=== PATIENT | female | born 1995 | race African-American/Black ===

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

== ENCOUNTER 2018-02-01 17:28 | Emergency (ER) | payer MEDICAID, OTHER ==
[~2018-02-01] VITALS: Ht 162.6 cm; Wt 54.0 kg
[2018-02-01 17:51] VITALS: BP 112/68
[2018-02-01 19:13] LABS: BASOPHILS % 0.5 % (0.0-2.0); EOSINOPHILS % 4.1 % (0.0-5.0); HEMATOCRIT. 32.6 % (36.0-48.0); HEMOGLOBIN. 11.6 g/dL (12.0-16.0); MEAN CORPUSCULAR HEMOGLOBIN 32.5 pg (28.0-32.0); MEAN CORPUSCULAR VOLUME 91.2 fL (81.0-99.0); MEAN PLATELET VOLUME 8.4 fl (7.4-10.4); MONOCYTES % 4.8 % (2.0-8.0); NEUTROPHILS % 46.6 % (40.0-76.0); PLATELET 357 x1000/uL (130-400); RED BLOOD CELL COUNT 3.57 mill/uL (4.2-5.4); RED CELL DISTRIBUTION WIDTH 12.3 % (11.6-14.6)
[2018-02-01 19:15] LABS: CHLORIDE 108 mEq/L (98-107)
[2018-02-01 19:26] LABS: B-HCG QUANTITATIVE 357 mIU/mL (<3)
[2018-02-01 20:40] LABS: CLARITY URINE CLOUDY (CLEAR); COLOR URINE YELLOW (YELLOW); KETONES URINE TRACE (NEGATIVE); LEUKOCYTE ESTERASE URINE TRACE (NEGATIVE); NITRITE URINE NEGATIVE (NEGATIVE); OCCULT BLOOD URINE 3+ (NEGATIVE); PROTEIN URINE 1+ (NEGATIVE); SPECIFIC GRAVITY URINE 1.031 (1.005-1.030)
== END 2018-02-01 21:30 | disposition left against medical advice (07) ==
LOC: ER 17:28
DX: O20.9 Hemorrhage in early pregnancy, unspecified (principal); O26.891 Other specified pregnancy related conditions, first trimester; R10.2 Pelvic and perineal pain; Z3A.08 8 weeks gestation of pregnancy
CPT/HCPCS: 36415; 80053; 81003; 81025; 84702; 85025; 86850; 86900; 99284

== ENCOUNTER 2018-10-10 17:53 | Emergency (ER) | payer MEDICAID, OTHER ==
[~2018-10-10] VITALS: Ht 162.6 cm; Wt 57.0 kg
[2018-10-10] MEDS ORDERED: KETOROLAC 30MG/ML VIAL IV ONE ×2 (19:00→19:15)
[2018-10-10] MEDS ORDERED: SODIUM CHLORIDE 0.9% 1,000 ML IV ONE (19:03)
[2018-10-10 19:15] LABS: CLARITY URINE CLOUDY (CLEAR); COLOR URINE YELLOW (YELLOW); KETONES URINE NEGATIVE (NEGATIVE); LEUKOCYTE ESTERASE URINE 3+ (NEGATIVE); NITRITE URINE NEGATIVE (NEGATIVE); OCCULT BLOOD URINE 2+ (NEGATIVE); PH URINE 7.5 (4.5-8.0); PROTEIN URINE 1+ (NEGATIVE)
[2018-10-10 19:34] LABS: BASOPHILS % 0.5 % (0.0-2.0); EOSINOPHILS % 2.2 % (0.0-5.0); HEMATOCRIT. 35.9 % (36.0-48.0); HEMOGLOBIN. 12.1 g/dL (12.0-16.0); LYMPHOCYTES % 33.8 % (20.0-50.0); MEAN CORPUSCULAR HEMOGLOBIN 31.9 pg (28.0-32.0); MEAN CORPUSCULAR VOLUME 94.7 fL (81.0-99.0); MEAN PLATELET VOLUME 9.1 fl (7.4-10.4); MONOCYTES % 6.4 % (2.0-8.0); NEUTROPHILS % 57.1 % (40.0-76.0); PLATELET 322 x1000/uL (130-400); RED BLOOD CELL COUNT 3.79 mill/uL (4.2-5.4)
[2018-10-10 19:40] LABS: CHLORIDE 110 mEq/L (98-107)
[2018-10-10 19:51] LABS: B-HCG QUANTITATIVE 52 mIU/mL (<3)
[2018-10-10 21:58] VITALS: BP 110/76
== END 2018-10-10 22:03 | disposition home or self-care (01) ==
LOC: ER 17:53
DX: N39.0 Urinary tract infection, site not specified (principal); N93.9 Abnormal uterine and vaginal bleeding, unspecified; Z98.890 Other specified postprocedural states
CPT/HCPCS: 36415; 76801; 76817; 80053; 81003; 81025; 84702; 85025; 86850; 86900; 86901; 87086; 96374; 99284; J1885; J7030

== ENCOUNTER 2018-10-27 16:59 | Emergency (ER) | payer MEDICAID ==
[~2018-10-27] VITALS: Ht 162.6 cm; Wt 50.0 kg
[2018-10-27 18:37] LABS: CLARITY URINE CLOUDY (CLEAR); COLOR URINE YELLOW (YELLOW); KETONES URINE TRACE (NEGATIVE); LEUKOCYTE ESTERASE URINE 2+ (NEGATIVE); NITRITE URINE NEGATIVE (NEGATIVE); OCCULT BLOOD URINE 2+ (NEGATIVE); PROTEIN URINE TRACE (NEGATIVE); SPECIFIC GRAVITY URINE 1.029 (1.005-1.030); UROBILINOGEN URINE 0.2 E.U./dL (0.2-1.0)
[2018-10-27] MEDS ORDERED: CEFTRIAXONE SODIUM 1 G/VIAL IM ONE (21:45)
[2018-10-28 00:05] VITALS: BP 116/70
== END 2018-10-28 00:03 | disposition home or self-care (01) ==
LOC: ER 16:59
DX: N39.0 Urinary tract infection, site not specified (principal); R11.0 Nausea; I51.9 Heart disease, unspecified; Z98.890 Other specified postprocedural states
CPT/HCPCS: 81003; 81025; 87086; 96372; 99283; J0696

== ENCOUNTER 2018-11-07 20:18 | Emergency (ER) | payer MEDICAID | END 2018-11-07 21:51 | disposition left against medical advice (07) | LOC: ER 20:18 | DX: M54.5 Low back pain (principal); R11.0 Nausea; Z53.21 Procedure and treatment not carried out due to patient leaving prior to being seen by health care provider ==

== ENCOUNTER 2018-11-10 14:04 | Emergency (ER) | payer MEDICAID ==
[~2018-11-10] VITALS: Ht 162.6 cm; Wt 52.0 kg
[2018-11-10 15:14] LABS: CLARITY URINE CLOUDY (CLEAR); COLOR URINE YELLOW (YELLOW); KETONES URINE NEGATIVE (NEGATIVE); LEUKOCYTE ESTERASE URINE 3+ (NEGATIVE); NITRITE URINE NEGATIVE (NEGATIVE); OCCULT BLOOD URINE NEGATIVE (NEGATIVE); PROTEIN URINE NEGATIVE (NEGATIVE); SPECIFIC GRAVITY URINE 1.026 (1.005-1.030)
[2018-11-10] MEDS ORDERED: METOCLOPRAMIDE HCL 10MG/2ML VIAL IV STA (15:58)
[2018-11-10] MEDS ORDERED: MAGNESIUM/ALUMINUM HYDROXIDE/SIMETHICONE 30ML UDC PO STA (15:58)
[2018-11-10] MEDS ORDERED: VISCOUS LIDOCAINE 2% 15 ML UDC PO STA (15:58)
[2018-11-10] MEDS ORDERED: SODIUM CHLORIDE 0.9% 1,000 ML IV ONE (15:58)
[2018-11-10] MEDS ORDERED: FAMOTIDINE 20MG/2ML VIAL IV STA (15:58)
[2018-11-10] MEDS ORDERED: DIPHENHYDRAMINE 50MG/ML VIAL IV ONE (16:00)
[2018-11-10 16:51] LABS: BASOPHILS % 0.5 % (0.0-2.0); EOSINOPHILS % 2.8 % (0.0-5.0); HEMOGLOBIN. 12.9 g/dL (12.0-16.0); LYMPHOCYTES % 39.7 % (20.0-50.0); MEAN CORPUSCULAR HEMOGLOBIN 32.6 pg (28.0-32.0); MEAN CORPUSCULAR VOLUME 93.6 fL (81.0-99.0); MEAN PLATELET VOLUME 9.5 fl (7.4-10.4); MONOCYTES % 5.9 % (2.0-8.0); NEUTROPHILS % 51.1 % (40.0-76.0); PLATELET 270 x1000/uL (130-400); RED BLOOD CELL COUNT 3.95 mill/uL (4.2-5.4); RED CELL DISTRIBUTION WIDTH 12.6 % (11.6-14.6)
[2018-11-10 16:52] LABS: CHLORIDE 110 mEq/L (98-107)
[2018-11-10 19:01] VITALS: BP 101/9
== END 2018-11-10 19:04 | disposition home or self-care (01) ==
LOC: ER 14:04
DX: N39.0 Urinary tract infection, site not specified (principal)
CPT/HCPCS: 36415; 80053; 81003; 81025; 83690; 85025; 87086; 96361; 96374; 96375; 99283; J1200; J2765; J3490; J7030; Z7610

== ENCOUNTER 2018-12-17 14:26 | Emergency (ER) | payer MEDICAID ==
[~2018-12-17] VITALS: Ht 162.6 cm; Wt 52.0 kg
[2018-12-17] MEDS ORDERED: SODIUM CHLORIDE 0.9% 1,000 ML IV ONE (17:01)
[2018-12-17] MEDS ORDERED: ONDANSETRON HCL 4MG/2ML INJ IV STA (17:01)
[2018-12-17 17:10] LABS: KETONES URINE NEGATIVE (NEGATIVE); LEUKOCYTE ESTERASE URINE 3+ (NEGATIVE); NITRITE URINE NEGATIVE (NEGATIVE); OCCULT BLOOD URINE NEGATIVE (NEGATIVE); PROTEIN URINE NEGATIVE (NEGATIVE); SPECIFIC GRAVITY URINE 1.019 (1.005-1.030); UROBILINOGEN URINE 0.2 E.U./dL (0.2-1.0)
[2018-12-17 17:11] LABS: CLARITY URINE SL HAZY (CLEAR); COLOR URINE PALE YELLOW (YELLOW)
[2018-12-17 17:40] LABS: BASOPHILS % 0.5 % (0.0-2.0); EOSINOPHILS % 2.6 % (0.0-5.0); HEMATOCRIT. 37.6 % (36.0-48.0); MEAN CORPUSCULAR HEMOGLOBIN 32.2 pg (28.0-32.0); MEAN CORPUSCULAR VOLUME 93.2 fL (81.0-99.0); MEAN PLATELET VOLUME 9.5 fl (7.4-10.4); MONOCYTES % 4.8 % (2.0-8.0); NEUTROPHILS % 45.1 % (40.0-76.0); PLATELET 263 x1000/uL (130-400); RED BLOOD CELL COUNT 4.04 mill/uL (4.2-5.4); RED CELL DISTRIBUTION WIDTH 12.7 % (11.6-14.6)
[2018-12-17 17:45] LABS: CHLORIDE 110 mEq/L (98-107)
[2018-12-17 17:51] LABS: INR 1.1; PROTHROMBIN TIME 11.1 sec (9.6-11.0)
[2018-12-17] MEDS ORDERED: KETOROLAC 30MG/ML VIAL IV NR (18:00)
[2018-12-17 18:38] VITALS: BP 113/70
== END 2018-12-17 18:45 | disposition home or self-care (01) ==
LOC: ER 14:46
DX: R10.2 Pelvic and perineal pain (principal); N12 Tubulo-interstitial nephritis, not specified as acute or chronic; Z98.890 Other specified postprocedural states
CPT/HCPCS: 36415; 80053; 81003; 81025; 83690; 85025; 85610; 96374; 96375; 99283; J1885; J2405; J7030

== ENCOUNTER 2019-04-29 13:59 | Emergency (ER) | payer MEDICAID, OTHER ==
[~2019-04-29] VITALS: Ht 162.6 cm; Wt 52.0 kg
[2019-04-29 14:10] VITALS: BP 93/61
== END 2019-04-29 16:26 | disposition left against medical advice (07) ==
LOC: ER 13:59
DX: Z53.21 Procedure and treatment not carried out due to patient leaving prior to being seen by health care provider (principal)

== ENCOUNTER 2020-02-01 14:35 | Emergency (ER) | payer OTHER, MEDICAID ==
[~2020-02-01] VITALS: Ht 162.6 cm; Wt 52.0 kg
[2020-02-01] MEDS ORDERED: SODIUM CHLORIDE 0.9% 1,000 ML IV ONE (15:03)
[2020-02-01] MEDS ORDERED: FAMOTIDINE 20MG/2ML VIAL IV STA (15:03)
[2020-02-01] MEDS ORDERED: ONDANSETRON HCL 4MG/2ML INJ IV STA (15:03)
[2020-02-01 15:48] LABS: HEMATOCRIT. 34.1 % (36.0-48.0); HEMOGLOBIN. 11.8 g/dL (12.0-16.0); MEAN CORPUSCULAR HEMOGLOBIN 31.4 pg (28.0-32.0); MEAN CORPUSCULAR VOLUME 90.6 fL (81.0-99.0); MEAN PLATELET VOLUME 8.9 fl (7.4-10.4); PLATELET 269 x1000/uL (130-400); RED BLOOD CELL COUNT 3.76 mill/uL (4.2-5.4); RED CELL DISTRIBUTION WIDTH 12.6 % (11.6-14.6)
[2020-02-01 15:53] LABS: CHLORIDE 109 mEq/L (98-107)
[2020-02-01 15:54] LABS: CLARITY URINE CLOUDY (CLEAR); COLOR URINE YELLOW (YELLOW); KETONES URINE NEGATIVE (NEGATIVE); LEUKOCYTE ESTERASE URINE 1+ (NEGATIVE); NITRITE URINE NEGATIVE (NEGATIVE); OCCULT BLOOD URINE NEGATIVE (NEGATIVE); PROTEIN URINE TRACE (NEGATIVE); SPECIFIC GRAVITY URINE 1.031 (1.005-1.030)
[2020-02-01 15:56] LABS: INR 1.1; PROTHROMBIN TIME 11.1 sec (9.6-11.0)
[2020-02-01 15:57] LABS: ETHANOL BLOOD < 10 mg/dL
[2020-02-01 16:07] LABS: *AMPHETAMINES SCREEN URINE NEGATIVE (NEGATIVE); *BARBITURATES SCREEN URINE NEGATIVE (NEGATIVE); *BENZODIAZEPINES SCREEN URINE NEGATIVE (NEGATIVE); *COCAINE SCREEN URINE NEGATIVE (NEGATIVE)
[2020-02-01 16:08] LABS: CANNABINOID URINE SCREEN NEGATIVE (NEGATIVE); METHADONE URINE SCREEN NEGATIVE (NEGATIVE); OPIATES URINE SCREEN NEGATIVE (NEGATIVE); PHENCYCLIDINE URINE SCREEN NEGATIVE (NEGATIVE)
[2020-02-01 16:17] LABS: HCG SCREEN NEGATIVE
[2020-02-01 17:16] LABS: PLATELET ESTIMATE NORMAL
[2020-02-01 17:50] VITALS: BP 95/65
== END 2020-02-01 17:55 | disposition home or self-care (01) ==
LOC: ER 14:35
DX: R42 Dizziness and giddiness (principal); R10.9 Unspecified abdominal pain; N39.0 Urinary tract infection, site not specified; R10.2 Pelvic and perineal pain; K21.9 Gastro-esophageal reflux disease without esophagitis
CPT/HCPCS: 36415; 74022; 76705; 80053; 80305; 80320; 81003; 81025; 83690; 84484; 84703; 85025; 85610; 93005; 99285; J7030; G0480

== ENCOUNTER 2022-01-17 20:25 | Emergency (ER) | payer MEDICAID, OTHER ==
[~2022-01-17] VITALS: Ht 162.6 cm; Wt 65.3 kg
[2022-01-17 22:23] VITALS: BP 147/86
== END 2022-01-18 00:16 | disposition left against medical advice (07) ==
LOC: ER 20:25
DX: Z53.21 Procedure and treatment not carried out due to patient leaving prior to being seen by health care provider (principal)
CPT/HCPCS: 81025; 99282

== ENCOUNTER 2023-10-06 09:42 | Emergency (ER) | payer MEDICAID, OTHER ==
[~2023-10-06] VITALS: Ht 162.6 cm; Wt 52.0 kg
[2023-10-06 09:52] VITALS: O2SAT 100
[2023-10-06] MEDS ORDERED: LIDO700A15 TP (11:03)
[2023-10-06] MEDS ORDERED: IBUP-2029 MT (11:03)
[2023-10-06 11:55] VITALS: BP 125/74; PULSE 67; RESP 18; TEMP 98
== END 2023-10-06 11:54 | disposition home or self-care (01) ==
LOC: ER 10:08
DX: M25.811 Other specified joint disorders, right shoulder (principal); Z98.890 Other specified postprocedural states
CPT/HCPCS: 73030; 81025; 99283; A4565

== ENCOUNTER 2023-11-18 17:48 | Emergency (ER) | payer MEDICAID ==
[~2023-11-18] VITALS: Ht 162.6 cm; Wt 55.0 kg
[~2023-11-18 17:48] MED LIST: IBUP-2029 MT; LIDO700A15 TP
[2023-11-18 17:56] VITALS: BP 106/72; PULSE 85; RESP 18; TEMP 97.8; O2SAT 98
== END 2023-11-18 22:59 | disposition left against medical advice (07) ==
LOC: ER 17:51
DX: R07.89 Other chest pain (principal); Z53.21 Procedure and treatment not carried out due to patient leaving prior to being seen by health care provider

== ENCOUNTER 2023-12-26 16:33 | Emergency (ER) | payer MEDICAID ==
[~2023-12-26] VITALS: Ht 167.6 cm; Wt 55.0 kg
[2023-12-26 16:38] VITALS: BP 98/63; PULSE 81; RESP 18; TEMP 98.5; O2SAT 98
[2023-12-26] MEDS ORDERED: ACET325T52 MT (17:20)
== END 2023-12-26 18:58 | disposition home or self-care (01) ==
LOC: ER 16:33
DX: S99.912A Unspecified injury of left ankle, initial encounter (principal); W18.30XA Fall on same level, unspecified, initial encounter; Y93.89 Activity, other specified; Y92.89 Other specified places as the place of occurrence of the external cause; Y99.8 Other external cause status
CPT/HCPCS: 73610; 99283

== ENCOUNTER 2024-02-06 11:03 | Emergency (ER) | payer MEDICAID ==
[~2024-02-06] VITALS: Ht 160 cm; Wt 53.0 kg
[~2024-02-06 11:03] MED LIST changes: +ACET325T52 MT
[2024-02-06 11:04] VITALS: O2SAT 100
[2024-02-06 11:43] VITALS: BP 98/70; PULSE 80; RESP 18; TEMP 98.3; O2SAT 99
[2024-02-06 12:02] LABS: BASOPHILS % 0.4 % (0.0-2.0); EOSINOPHILS % 1.7 % (0.0-5.0); HEMATOCRIT. 37.9 % (36.0-48.0); LYMPHOCYTES % 52.4 % (20.0-50.0); MEAN CORPUSCULAR HEMOGLOBIN 32.5 pg (28.0-32.0); MEAN CORPUSCULAR HGB CONC 34.3 g/dL (31.0-37.0); MEAN CORPUSCULAR VOLUME 94.8 fL (81.0-99.0); MONOCYTES % 3.9 % (2.0-8.0); NEUTROPHILS % 41.6 % (40.0-76.0); PLATELET 281 x1000/uL (130-400); WHITE BLOOD COUNT 6.2 x1000/uL (4.5-11.0)
[2024-02-06 12:08] LABS: CHLORIDE 109 mEq/L (98-107); POTASSIUM 4.3 mEq/L (3.5-5.1); SODIUM 140 mEq/L (136-145)
[2024-02-06 12:09] LABS: CALCIUM 9.7 mg/dL (8.7-10.4); CARBON DIOXIDE 25 mEq/L (21-32)
[2024-02-06 12:14] LABS: CREATININE 0.8 mg/dL (0.6-1.0); GLUCOSE 91 mg/dL (70-105); UREA NITROGEN BLOOD 7 mg/dL (9-23)
[2024-02-06 12:56] LABS: HCG SCREEN NEGATIVE
[2024-02-06 13:36] LABS: CLARITY URINE CLOUDY (CLEAR); COLOR URINE YELLOW (YELLOW); GLUCOSE URINE NEGATIVE (NEGATIVE); KETONES URINE NEGATIVE (NEGATIVE); LEUKOCYTE ESTERASE URINE 2+ (NEGATIVE); NITRITE URINE NEGATIVE (NEGATIVE); OCCULT BLOOD URINE NEGATIVE (NEGATIVE); PROTEIN URINE NEGATIVE (NEGATIVE); SPECIFIC GRAVITY URINE 1.024 (1.005-1.030); UROBILINOGEN URINE 0.2 E.U./dL (0.2-1.0)
[2024-02-06 13:49] LABS: BACTERIA URINE 2+; MUCUS URINE TRACE /lpf (< = 2+); SQUAMOUS EPITHELIAL CELL URINE 3+ /lpf (RARE/1+)
[2024-02-06 13:50] LABS: WBC URINE 0-2 /hpf (0-2)
[2024-02-06 13:51] LABS: RBC URINE 0-2 /hpf (0-2)
[2024-02-08 13:10] LABS: CHLAMYDIA TRACHOMATIS NAA Negative (Negative); NEISSERIA GONORRHOEAE NAA Negative (Negative)
== END 2024-02-06 14:15 | disposition left against medical advice (07) ==
LOC: ER 11:03
DX: N89.8 Other specified noninflammatory disorders of vagina (principal); N39.0 Urinary tract infection, site not specified
CPT/HCPCS: 36415; 80048; 81003; 81025; 84703; 85025; 87491; 87591; 99283

== ENCOUNTER 2024-03-28 12:15 | Emergency (ER) | payer MEDICAID ==
[~2024-03-28] VITALS: Ht 162.6 cm; Wt 54.0 kg
[2024-03-28 12:16] VITALS: PULSE 80; O2SAT 98
[2024-03-28 12:29] VITALS: BP 111/75; RESP 16; TEMP 98.2; O2SAT 100
[2024-03-28 12:57] LABS: BASOPHILS % 0.5 % (0.0-2.0); DIFFERENTIAL COMMENT 0; EOSINOPHILS % 1.9 % (0.0-5.0); HEMOGLOBIN. 13.5 g/dL (12.0-16.0); LYMPHOCYTES % 43.1 % (20.0-50.0); MEAN CORPUSCULAR HEMOGLOBIN 31.5 pg (28.0-32.0); MEAN CORPUSCULAR HGB CONC 33.8 g/dL (31.0-37.0); MEAN CORPUSCULAR VOLUME 93.1 fL (81.0-99.0); MEAN PLATELET VOLUME 8.6 fl (7.4-10.4); MONOCYTES % 4.7 % (2.0-8.0); NEUTROPHILS % 49.8 % (40.0-76.0); PLATELET 272 x1000/uL (130-400); RED BLOOD CELL COUNT 4.29 mill/uL (4.2-5.4); RED CELL DISTRIBUTION WIDTH 12.7 % (11.6-14.6); WHITE BLOOD COUNT 5.9 x1000/uL (4.5-11.0)
[2024-03-28 13:08] LABS: CHLORIDE 107 mEq/L (98-107); POTASSIUM 4.3 mEq/L (3.5-5.1); SODIUM 138 mEq/L (136-145)
[2024-03-28 13:09] LABS: CARBON DIOXIDE 24 mEq/L (21-32)
[2024-03-28 13:10] LABS: CALCIUM 10.1 mg/dL (8.7-10.4)
[2024-03-28 13:15] LABS: CREATININE 1.1 mg/dL (0.6-1.0); GLUCOSE 90 mg/dL (70-105); UREA NITROGEN BLOOD 11 mg/dL (9-23)
[2024-03-28 13:25] LABS: B-HCG QUANTITATIVE < 1 mIU/mL (<3)
== END 2024-03-28 16:05 | disposition left against medical advice (07) ==
LOC: ER 12:15
DX: R10.9 Unspecified abdominal pain (principal); R10.2 Pelvic and perineal pain; Z53.21 Procedure and treatment not carried out due to patient leaving prior to being seen by health care provider
CPT/HCPCS: 36415; 80048; 84702; 85025; 86850; 86900

== ENCOUNTER 2025-01-20 11:39 | Emergency (ER) | payer MEDICAID ==
[~2025-01-20] VITALS: Ht 162.6 cm; Wt 55.0 kg
[~2025-01-20 11:39] MED LIST changes: +ACET-3800 MT; -ACET325T52 MT; +IBUP-1455 MT; -IBUP-2029 MT; +LIDO-53 TP; -LIDO700A15 TP
[2025-01-20 11:43] VITALS: TEMP 36.7; O2SAT 99
[2025-01-20 11:44] VITALS: O2SAT 100
[2025-01-20 13:20] VITALS: BP 115/72; PULSE 97; RESP 16
[2025-01-20] MEDS: KETOROLAC 15MG/ML VIAL IM ONE (13:20)
== END 2025-01-20 15:19 | disposition home or self-care (01) ==
LOC: ER 11:39
DX: M25.531 Pain in right wrist (principal); Z95.1 Presence of aortocoronary bypass graft; Z79.899 Other long term (current) drug therapy
CPT/HCPCS: 73110; 99283; J1885

== ENCOUNTER 2025-03-09 08:49 | Emergency (ER) | payer MEDICAID ==
[~2025-03-09] VITALS: Ht 154.9 cm; Wt 56.0 kg
[2025-03-09 08:57] VITALS: TEMP 37; O2SAT 100
[2025-03-09] MEDS: DOXYCYCLINE 100MG/100ML 100 ML IV STA (09:57)
[2025-03-09] MEDS: ONDANSETRON HCL 4MG/2ML INJ IV ONE (10:02)
[2025-03-09] MEDS: SODIUM CHLORIDE 0.9% 1,000 ML IV ONE (10:02)
[2025-03-09 10:06] LABS: BASOPHILS % 1.1 % (0.0-2.0); EOSINOPHILS % 4.6 % (0.0-5.0); HEMATOCRIT. 37.7 % (36.0-48.0); HEMOGLOBIN. 13.0 g/dL (12.0-16.0); LYMPHOCYTES % 42.0 % (20.0-50.0); MEAN PLATELET VOLUME 9.0 fl (7.4-10.4); MONOCYTES % 3.7 % (2.0-8.0); NEUTROPHILS % 48.6 % (40.0-76.0); PLATELET 313 x1000/uL (130-400); RED BLOOD CELL COUNT 4.15 mill/uL (4.2-5.4); RED CELL DISTRIBUTION WIDTH 13.0 % (11.6-14.6)
[2025-03-09 10:08] LABS: CLARITY URINE CLEAR (CLEAR); COLOR URINE YELLOW (YELLOW); GLUCOSE URINE NEGATIVE (NEGATIVE); KETONES URINE NEGATIVE (NEGATIVE); LEUKOCYTE ESTERASE URINE NEGATIVE (NEGATIVE); NITRITE URINE NEGATIVE (NEGATIVE); OCCULT BLOOD URINE TRACE (NEGATIVE); PH URINE 6.0 (4.5-8.0); PROTEIN URINE NEGATIVE (NEGATIVE); SPECIFIC GRAVITY URINE 1.014 (1.005-1.030); UROBILINOGEN URINE 0.2 E.U./dL (0.2-1.0)
[2025-03-09 10:21] LABS: CREATININE 0.7 mg/dL (0.6-1.0)
[2025-03-09 10:22] LABS: UREA NITROGEN BLOOD 7 mg/dL (9-23)
[2025-03-09 10:23] LABS: ASPARTATE AMINOTRANSFERASE 14 IU/L (<34); BILIRUBIN DIRECT 0.3 mg/dL (<=3.0)
[2025-03-09 10:24] LABS: BILIRUBIN TOTAL 1.0 mg/dL (0.1-1.0); PROTEIN TOTAL 7.5 g/dL (6.0-8.3)
[2025-03-09 10:30] LABS: HCG SCREEN NEGATIVE
[2025-03-09 10:36] LABS: BACTERIA URINE TRACE; MUCUS URINE 1+ /lpf (< = 2+); SQUAMOUS EPITHELIAL CELL URINE 1+ /lpf (RARE/1+)
[2025-03-09 10:37] LABS: RBC URINE 0-2 /hpf (0-2); WBC URINE 0-2 /hpf (0-2)
[2025-03-09] MEDS ORDERED: CEFTRIAXONE 1GM/50ML 50 ML IV ONE (11:00)
[2025-03-09] MEDS ORDERED: KETOROLAC 30MG/ML VIAL IV ONE (11:00)
[2025-03-09 12:00] VITALS: TEMP 98.6
[2025-03-09] MEDS ORDERED: ONDA-241 MT (13:32)
[2025-03-09] MEDS: METRONIDAZOLE 500 MG PREMIX 100 ML IV ONE (13:33)
[2025-03-09] MEDS: CEFTRIAXONE 1GM/50ML 50 ML IV NR (14:10)
[2025-03-09] MEDS: KETOROLAC 30MG/ML VIAL IV NR (14:10)
[2025-03-09 14:26] VITALS: BP 104/70; PULSE 72; RESP 14; O2SAT 100
[2025-03-11 04:07] LABS: CHLAMYDIA TRACHOMATIS NAA Negative (Negative); NEISSERIA GONORRHOEAE NAA Negative (Negative)
== END 2025-03-09 14:47 | disposition home or self-care (01) ==
LOC: ER 08:49 → CMPBEDREQ 16:32
DX: A54.24 Gonococcal female pelvic inflammatory disease (principal); N76.0 Acute vaginitis; B96.89 Other specified bacterial agents as the cause of diseases classified elsewhere; R11.2 Nausea with vomiting, unspecified; Z79.899 Other long term (current) drug therapy
CPT/HCPCS: 87491; 87591; 80076; 80048; 81003; 84703; 83690; 85025; 87086; 87210; 36415; 76830; 76856; 96367; 96365; 96375; 99285; J0696; J3490 ×2; J1885; J2405; J7030; Z7610 ×3

== ENCOUNTER 2025-04-08 18:14 | Emergency (ER) | payer MEDICAID ==
[~2025-04-08 18:14] MED LIST changes: +ONDA-241 MT
[2025-04-08 18:47] VITALS: PULSE 100; RESP 18; O2SAT 99
== END 2025-04-08 18:50 | disposition left against medical advice (07) ==
LOC: ER 18:14
DX: N93.9 Abnormal uterine and vaginal bleeding, unspecified (principal)
CPT/HCPCS: 99281

== ENCOUNTER 2025-04-10 10:15 | Emergency (ER) | payer MEDICAID ==
[~2025-04-10] VITALS: Ht 162.6 cm; Wt 55.0 kg
[2025-04-10 10:22] VITALS: O2SAT 98
[2025-04-10 10:28] VITALS: BP 111/77; PULSE 98; RESP 14; TEMP 37; O2SAT 98
[2025-04-10 10:58] LABS: BASOPHILS % 0.8 % (0.0-2.0); EOSINOPHILS % 2.7 % (0.0-5.0); HEMATOCRIT. 37.4 % (36.0-48.0); HEMOGLOBIN. 13.0 g/dL (12.0-16.0); LYMPHOCYTES % 47.0 % (20.0-50.0); MEAN PLATELET VOLUME 8.4 fl (7.4-10.4); MONOCYTES % 4.2 % (2.0-8.0); NEUTROPHILS % 45.3 % (40.0-76.0); PLATELET 329 x1000/uL (130-400); RED BLOOD CELL COUNT 4.12 mill/uL (4.2-5.4); RED CELL DISTRIBUTION WIDTH 13.3 % (11.6-14.6)
[2025-04-10 11:16] LABS: CREATININE 0.8 mg/dL (0.6-1.0); UREA NITROGEN BLOOD 7 mg/dL (9-23)
[2025-04-10 12:23] LABS: CLARITY URINE CLOUDY (CLEAR); COLOR URINE YELLOW (YELLOW); GLUCOSE URINE NEGATIVE (NEGATIVE); KETONES URINE NEGATIVE (NEGATIVE); LEUKOCYTE ESTERASE URINE 2+ (NEGATIVE); NITRITE URINE NEGATIVE (NEGATIVE); OCCULT BLOOD URINE 2+ (NEGATIVE); PH URINE 6.0 (4.5-8.0); PROTEIN URINE NEGATIVE (NEGATIVE); SPECIFIC GRAVITY URINE 1.017 (1.005-1.030); UROBILINOGEN URINE 0.2 E.U./dL (0.2-1.0)
[2025-04-10 12:24] LABS: HCG SCREEN NEGATIVE
[2025-04-10 13:29] LABS: SQUAMOUS EPITHELIAL CELL URINE 3+ /lpf (RARE/1+)
[2025-04-10 13:30] LABS: BACTERIA URINE 3+; RBC URINE 0-2 /hpf (0-2)
== END 2025-04-10 14:10 | disposition left against medical advice (07) ==
LOC: ER 10:15
DX: R10.84 Generalized abdominal pain (principal)
CPT/HCPCS: 36415; 80048; 81003; 81025; 84703; 85025; 99283

== ENCOUNTER 2025-05-09 08:23 | Emergency (ER) | payer MEDICAID ==
[~2025-05-09] VITALS: Ht 162.6 cm; Wt 60.0 kg
[2025-05-09 08:43] VITALS: O2SAT 99
[2025-05-09] MEDS ORDERED: MICO45CR16 VG (09:45)
[2025-05-09] MEDS ORDERED: FLUC150T46 MT (09:45)
[2025-05-09 10:12] VITALS: BP 105/71; PULSE 95; RESP 17; TEMP 37; O2SAT 99
== END 2025-05-09 10:13 | disposition home or self-care (01) ==
LOC: ER 08:23
DX: B37.31 Acute candidiasis of vulva and vagina (principal); Z79.899 Other long term (current) drug therapy
CPT/HCPCS: 99283